=== PATIENT | female | born 1995 | race Caucasian/White ===

== ENCOUNTER → 2017-05-30 | Outpatient (CLI) | payer OTHER ==
[2017-05-30 10:22] LABS: HCT 40.1 % (34.0-46.0); HGB 13.2 gm/dL (11.4-16.0); MCH 29.5 pg (25.0-35.0); MCHC 32.9 g/dL (31.0-37.0); MCV 89.6 fL (80.0-100.0); Mean Platelet Volume 7.4; Platelet Count 271 k/uL (150-450); RBC 4.48 m/uL (3.80-5.40); RDW 14.5 % (11.5-15.5); WBC 5.6 k/uL (4.0-11.0)
[2017-05-30 10:27] LABS: Appearance,Urine Clear (Clear); Bilirubin,Urine Negative (Negative); Blood,Urine Small (Negative); Color,Urine Yellow; Glucose,Urine (UA) Negative (Negative); Ketones,Urine Negative (Negative); Leukocyte Esterase,Urine Negative (Negative); Mucus,Urine Occasional /hpf; Nitrite,Urine Negative (Negative); PH, Urine 6.5 (5.0-8.0); Protein,Urine Negative (Negative); RBC,Urine 1 /hpf (0-5); Specific Gravity,Urine 1.014 (1.001-1.035); Squamous Epithelial Cell,Urine 3 /hpf (0-4); Urobilinogen,Urine <2.0 mg/dL (<2.0); WBC,Urine 1 /hpf (0-5)
[2017-05-30 10:34] LABS: ALT 12 U/L (9-52); AST 11 U/L (14-36); Albumin 4.4 g/dL (3.5-5.0); Alkaline Phosphatase 42 U/L (38-126); Anion Gap 10 mmol/L; Blood Urea Nitrogen 13 mg/dL (7-17); C Reactive Protein <5.0 mg/L (<10.0); Calcium 9.8 mg/dL (8.4-10.2); Carbon Dioxide 28 mmol/L (22-30); Chloride 104 mmol/L (98-107); Glucose 91 mg/dL (74-99); Potassium 4.4 mmol/L (3.5-5.1); Sodium 142 mmol/L (137-145); Total Bilirubin 0.4 mg/dL (0.2-1.3); Total Protein 7.4 g/dL (6.3-8.2)
[2017-05-30 12:41] LABS: Erythrocyte Sedimentation Rate 4 mm/hr (0-20)
== END | disposition home or self-care (01) ==
LOC: LABWHC1 09:52
DX: R63.4 Abnormal weight loss (principal); R10.30 Lower abdominal pain, unspecified
CPT/HCPCS: 36415; 80053; 81001; 83516; 85027; 85652; 86140

== ENCOUNTER → 2018-02-10 | Outpatient (CLI) | payer OTHER ==
--- NOTE | 2018-02-11 07:21 | US ---
EXAMINATION TYPE: US pelvic complete DATE OF EXAM: 02/10/2018 COMPARISON: NONE CLINICAL HISTORY: R10.2 PELVIC PAIN. Patient stated had pelvic pain last week; menses started last we ; had 3 menstrual cycles in January; TECHNIQUE: Transvaginal (TV) and Transabdominal (TA) . Transabdominal sonographic images of the pel vis were acquired. Transvaginal sonographic images were medically necessary to better assess the fol lowing anatomy: endometrium Date of LMP: 02/05/2018 EXAM MEASUREMENTS: Uterus: 5.5 x 2.5 x 2.4 cm Endometrial Stripe: 0.1 cm Right Ovary: 3.8 x 1.9 x 1.2 cm Left Ovary: 2.8 x 2.2 x 1.5 cm 1. Uterus: Anteverted 2. Endometrium: thickness is wnl for day 6 LMP 3. Right Ovary: small follicles seen 4. Left Ovary: small follicles seen Spectral, color and waveform Doppler imaging shows good arterial and venous flow within the ovaries ; there is no evidence for ovarian torsion. 5. Bilateral Adnexa: wnl 6. Posterior cul-de-sac: complex fluid seen in posterior cul de sac = 2.5 x 1.3 x 1.4cm (2.4ml wnl) and noted on TA and TV US, and fluid seen in anterior cul de sac on TA US = 1.8 x 1.6 x 1.1cm (1.7ml wnl). IMPRESSION: 1. Complex fluid as noted above 2. Small ovarian follicles.
== END ==
LOC: RADUSWWP 16:20
PROVIDERS: ATTEND Family Medicine
DX: R10.2 Pelvic and perineal pain (principal)
CPT/HCPCS: 76830; 76856

== ENCOUNTER → 2018-04-08 | Outpatient (CLI) | payer OTHER ==
--- NOTE | 2018-04-08 07:56 | US ---
EXAMINATION TYPE: US transvaginal DATE OF EXAM: 04/08/2018 COMPARISON: 02/10/2018 CLINICAL HISTORY: R10.2 Pelvic pain. TECHNIQUE: . Transvaginal sonographic images of the pelvis were acquired. Date of LMP: 1 week ago EXAM MEASUREMENTS: Uterus: 5.2 x 2.4 x 2.7 cm Endometrial Stripe: 0.1 cm Right Ovary: 2.7 x 2.5 x 2.2 cm Left Ovary: 2.1 x 2.5 x 1.5 cm 1. Uterus: Anteverted wnl 2. Endometrium: wnl 3. Right Ovary: Multiple follicles visualized, largest measuring 4. Left Ovary: Follicle visualized, wnl 5. Bilateral Adnexa: wnl 6. Posterior cul-de-sac: wnl IMPRESSION: Bilateral ovarian follicles noted.
== END ==
LOC: RADUSWWP 07:04
PROVIDERS: ATTEND Obstetrics & Gynecology
DX: R10.2 Pelvic and perineal pain (principal)
CPT/HCPCS: 76830

== ENCOUNTER → 2019-12-08 | Outpatient (CLI) | payer OTHER | END | disposition home or self-care (01) | LOC: LABWHC1 08:38 | PROVIDERS: ATTEND Otolaryngology Plastic Surgery within the Head & Neck | DX: E04.1 Nontoxic single thyroid nodule (principal) | CPT/HCPCS: 36415; 84443 ==

== ENCOUNTER → 2019-12-24 | Outpatient (CLI) | payer OTHER ==
--- NOTE | 2019-12-24 08:12 | US ---
EXAMINATION TYPE: US thyroid st tissue head/neck DATE OF EXAM: 12/24/2019 COMPARISON: NONE CLINICAL HISTORY: E04.1 Thyroid Nodule. Thyroid nodule seen on recent MRI that was not done here GLAND SIZE: Right Lobe: 5.2 x 1.3 x 1.9 cm Overall Parenchyma: homogenous Left Lobe: 4.8 x 1.1 x 1.6 cm Overall Parenchyma: homogeneous Isthmus Thickness: 0.4 cm NODULES RIGHT: # of nodules measured on right: multiple subcentimeter nodules with largest described below 1. 0.7 X 0.5 x 0.5 cm hypoechoic mixed nodule at the medial lower pole with well-defined margins. T his nodule is wider than tall and shows no intranodular vascularity. Prior size: no previous LEFT: # of nodules measured on left: 2 1. 1.1 X 0.4 x 0.8 cm hypoechoic cystic nodule with septations at the lateral lower pole with well- defined margins. This nodule is wider than tall and shows no intranodular vascularity. Prior size: no previous 2. 0.6 X 0.3 x 0.6 cm hypoechoic mixed nodule at the lateral lower pole with well-defined margins. T his nodule is wider than tall and shows no intranodular vascularity. Prior size: no previous ISTHMUS: # of nodules measured in the isthmus: 1 1. 1.0 X 0.4 x 0.8 cm hypoechoic cystic nodule with septations at the right portion of isthmus with well-defined margins. This nodule is wider than tall and shows no intranodular vascularity. Prior size: no previous Bilateral neck scanned, no evidence of lymphadenopathy. Homogeneous normal-sized thyroid with scattered small nodules as detailed above. IMPRESSION: No concerning radiodense than 1 cm solid nodules to warrant sampling currently. Findings consistent with multinodular goiter.
== END | disposition home or self-care (01) ==
LOC: RADUSWWP 07:38
PROVIDERS: ATTEND Otolaryngology Plastic Surgery within the Head & Neck
DX: E04.1 Nontoxic single thyroid nodule (principal)
CPT/HCPCS: 76536